=== PATIENT | female | born 1945 | race Caucasian/White ===

== ENCOUNTER 2021-09-25 10:38 | Outpatient (CLI) | payer MEDICARE | END 2021-09-25 10:39 | disposition home or self-care (01) | LOC: CSHMAMMO 10:38 | PROVIDERS: ATTEND Obstetrics & Gynecology | DX: M85.88 Other specified disorders of bone density and structure, other site (principal); M81.0 Age-related osteoporosis without current pathological fracture | CPT/HCPCS: 77080 ==

== ENCOUNTER 2023-11-30 14:30 | Outpatient (CLI) | payer MEDICARE | END 2023-11-30 14:31 | disposition home or self-care (01) | LOC: CSHMAMMO 14:30 | PROVIDERS: ATTEND Family Medicine | DX: Z12.31 Encounter for screening mammogram for malignant neoplasm of breast (principal); Z80.3 Family history of malignant neoplasm of breast; Z91.89 Other specified personal risk factors, not elsewhere classified; N64.89 Other specified disorders of breast | CPT/HCPCS: 77063; 77067 ==

== ENCOUNTER 2023-12-03 08:05 | Outpatient (CLI) | payer MEDICARE | END 2023-12-03 08:06 | disposition home or self-care (01) | LOC: CSHMAMMO 08:05 | PROVIDERS: ATTEND Family Medicine | DX: N64.89 Other specified disorders of breast (principal) | CPT/HCPCS: 76642; 77065; G0279 ==

== ENCOUNTER 2024-12-06 11:10 | Outpatient (CLI) | payer MEDICARE | END 2024-12-06 11:11 | disposition home or self-care (01) | LOC: CSHMAMMO 11:10 | PROVIDERS: ATTEND Family Medicine | DX: Z12.31 Encounter for screening mammogram for malignant neoplasm of breast (principal); Z80.3 Family history of malignant neoplasm of breast; Z91.89 Other specified personal risk factors, not elsewhere classified; R92.8 Other abnormal and inconclusive findings on diagnostic imaging of breast | CPT/HCPCS: 77063; 77067 ==

== ENCOUNTER 2024-12-12 14:00 | Outpatient (CLI) | payer MEDICARE | END 2024-12-12 14:01 | disposition home or self-care (01) | LOC: CSHMAMMO 14:00 | PROVIDERS: ATTEND Family Medicine | DX: Q63.8 Other specified congenital malformations of kidney (principal) | CPT/HCPCS: 76642; 77065; G0279 ==

== ENCOUNTER → 2024-12-15 | Day surgery (SDC) | payer MEDICARE | LOC: CSHULT 12:10 | PROVIDERS: ATTEND Family Medicine | PROC: 0H9T3ZX Drainage of Right Breast, Percutaneous Approach, Diagnostic (ICD-10-PCS; principal; 2024-12-15) | DX: C50.811 Malignant neoplasm of overlapping sites of right female breast (principal); Z88.0 Allergy status to penicillin; Z88.2 Allergy status to sulfonamides | CPT/HCPCS: 19083; A4648; 88305; 88341; 88342; 88361 ==

== ENCOUNTER 2024-12-29 10:19 | Outpatient (CLI) | payer MEDICARE | END 2024-12-29 10:20 | disposition home or self-care (01) | LOC: CSHMAMMO 10:19 | PROVIDERS: ATTEND Family Medicine | DX: C50.911 Malignant neoplasm of unspecified site of right female breast (principal); Z98.890 Other specified postprocedural states | CPT/HCPCS: 19083; A4648 ==

== ENCOUNTER 2024-12-29 12:21 | Outpatient (CLI) | payer MEDICARE ==
[2024-12-29 13:26] LABS: Hematocrit 37.5 % (34.9-44.5); Hemoglobin 12.3 g/dL (12.0-15.5); Mean Corpuscular Hemoglobin 29.7 pg (27.0-33.0); Mean Corpuscular Volume 90.6 fL (81.6-98.3); Platelet Count 325 10x3/uL (150-450); Red Blood Cell (RBC) Count 4.14 10x6/uL (3.90-5.03); White Blood Cell (WBC) Count 10.09 10x3/uL (3.5-10.5)
[2024-12-29 13:48] LABS: Anion Gap 12 mmol/L (10-20); BUN (Urea Nitrogen) 22 mg/dL (9.8-20.1); Calc. Creatinine Clearance 0 mL/min (70-130); Calcium 9.0 mg/dL (7.8-10.44); Carbon Dioxide 28 mmol/L (23-31); Chloride 97 mmol/L (98-107); Glucose 121 mg/dL (83-110); Potassium 3.9 mmol/L (3.5-5.1); Sodium 133 mmol/L (136-145)
== END 2024-12-29 12:22 | disposition home or self-care (01) ==
LOC: CSHLAB 12:21
PROVIDERS: ATTEND Surgery
DX: Z01.818 Encounter for other preprocedural examination (principal); C50.911 Malignant neoplasm of unspecified site of right female breast
CPT/HCPCS: 80048; 85027; 93005; 93010